=== PATIENT | female | born 1930 | race Caucasian/White ===

== ENCOUNTER → 2017-08-30 13:07 | Outpatient (CLI) | payer MEDICARE ==
[2015-09-04 15:06] VITALS: BMI 20.5
[~2017-08-30 13:07] MED LIST: BONIVA150 MG PO; FERROUS SULFAT140 MG PO; GINKO BILOBA PO; LIPITOR40 MG PO; NORVASC10 MG PO; PLAVIX75 MG PO; PRINIVIL10 MG PO; ZEBETA10 MG PO
== END | disposition home or self-care (01) ==
LOC: D.MAMMO 08-11 15:30
DX: Z12.31 Encounter for screening mammogram for malignant neoplasm of breast (principal)

== ENCOUNTER → 2018-09-21 17:52 | Outpatient (CLI) | payer MEDICARE ==
[2015-09-04 15:06] VITALS: BMI 20.5
== END | disposition home or self-care (01) ==
LOC: D.MAMMO 08:30
DX: R92.8 Other abnormal and inconclusive findings on diagnostic imaging of breast (principal)

== ENCOUNTER → 2018-10-03 09:47 | Outpatient (CLI) | payer MEDICARE ==
[2015-09-04 15:06] VITALS: BMI 20.5
[~2018-10-03 09:47] MED LIST changes: +ALPHA PO; +LANOXIN125 MCG PO; +NORCO 10-325 TA1 TAB PO
[2018-10-28 07:51] VITALS: BMI 23.4
== END | disposition home or self-care (01) ==
LOC: D.US 09-28 11:00
DX: R92.8 Other abnormal and inconclusive findings on diagnostic imaging of breast (principal)

== ENCOUNTER 2018-10-27 05:57 | Day surgery (SDC) | payer MEDICARE ==
[2018-10-26 15:25] LABS: BASOPHILS 0.1 % (0-2); EOSINOPHILS 1.7 % (0-7); HEMATOCRIT 35.5 % (36.0-48.0); HEMOGLOBIN 11.7 g/dL (12-16); IMMATURE GRANULOCYTES 0.2 % (0-5); LYMPHOCYTES 14.9 % (15-50); MCH 29.6 pg (26.0-34.0); MCV 89.9 fL (80.0-100.0); MEAN PLATELET VOLUME 11.6 fL (7.4-10.4); MONOCYTES 10.9 % (2-11); NEUTROPHILS 72.2 % (40-80); RBC 3.95 10x6/uL (4.00-5.40); RDW 13.3 % (11.5-14.5); WBC 9.7 10x3/uL (4.8-10.8)
[2018-10-26 15:41] LABS: PLATELET COUNT 218 10x3/uL (130-400)
[2018-10-26 15:48] LABS: ANION GAP 12.4 mmol/L (8-16); CALCIUM 10.1 mg/dL (8.5-10.1); CARBON DIOXIDE 28.6 mmol/L (21.0-32.0); CREATININE - SERUM 1.5 mg/dL (0.6-1.3)
[2018-10-26 16:02] LABS: APTT 26.5 SECONDS (22.8-39.4); INR 1.12 (0.85-1.17); PROTIME 13.9 SECONDS (11.6-15.0)
[~2018-10-27] VITALS: Ht 152.4 cm; Wt 54.5 kg
--- NOTE | ~2018-10-27 | OP ---
PATIENT NAME: CADE JAIME MEDICAL RECORD: [id number] :32 LOCATION:D.MS [id number] ADMISSION DATE: SURGEON: MEDHAT MCKEON MD DATE OF OPERATION: 10/27/2018 PREOPERATIVE DIAGNOSES: 1. Left breast invasive lobular carcinoma. 2. Hypertension. 3. Hypercholesterolemia. 4. Valvular heart disease. 5. History of chronic anticoagulant use. 6. History of CVA. POSTOPERATIVE DIAGNOSES: 1. Left breast invasive lobular carcinoma. 2. Hypertension. 3. Hypercholesterolemia. 4. Valvular heart disease. 5. History of chronic anticoagulant use. 6. History of CVA. PROCEDURES: 1. Left simple mastectomy. 2. Right axillary sentinel lymph node biopsy. SURGEON: Medhat Mckeon MD REPORT OF PROCEDURE: The patient's chest and axilla were prepped and draped in sterile fashion. Preoperatively, the patient had undergone lymphoscintigraphy which showed no uptake in the left axilla, but there was brisk uptake in the right axilla. The patient had had previous surgery for breast cancer on the left breast, but they were unsure if she had ever undergone lymph node dissection. We marked the area around the nipple areolar complex on the left breast in an ovoid fashion. The patient's breast was firm and protruding out. The skin was puckered in over top of this. We made sure that our incision lines incorporated what appeared to be normal tissue. The skin incision was made using a #10 blade. We used electrocautery to dissect through the subcutaneous tissue. Superior and inferior skin flaps were made encompassing the entire breast tissue. We then excised the breast off of the pectoralis muscle on the inferior and lateral aspect of the pectoralis muscle. This mass was adherent to the muscle. For this reason, we had to excise a small portion of the muscle to actually completely remove the mass. Once the mass was removed, it was marked appropriately and sent off for permanent specimen. Any bleeding that was found was then treated with electrocautery or tied off with 3-0 silk ties. The left axilla was inspected and there was some scar tissue present. I used the Neoprobe to try and find any evidence of any radioactive uptake and there really was none. I even did a digital inspection of the area and found no evidence of any lymph tissue visible. I assumed at this point they probably had actually done a left axillary lymph node dissection at her previous breast cancer surgery. We irrigated out this entire wound with sterile water. A #10 flat J-P drains times 2 were then inserted and placed over the chest cavity. The subcutaneous tissues were reapproximated with multiple interrupted 3-0 Vicryls and the skin was closed with tammy. We then approached the patient's right axilla. Using the Neoprobe, we localized the area of highest reading and a transverse incision was made overlying this. We penetrated through to the OPERATIVE REPORT [id number] CADE JAIME axillary fascia, and once inside, we pulled up axillary tissue which included a large sentinel lymph node. This lymph node was excised completely and the final reading for it was 200. We inspected the area and there was another sentinel lymph node that was nearby the registered approximately 160. This was very small in nature and this was excised completely as well. We inspected once again and did not find any evidence of any radiotracer present. We then irrigated out this wound with normal saline. The subcutaneous tissues and fascia were closed with interrupted 3-0 Vicryls and the skin was closed with running subcutaneous 5-0 Monocryl. COMPLICATIONS: None. CONDITION: Stable. ANESTHESIA: General endotracheal. BLOOD LOSS: 50 mL. TRANSINT:[id number] Voice Confirmation ID: [id number] DOCUMENT ID: [id number] MEDHAT MCKEON MD CC: Bobby CARUSO ROBERT T [id number] DICTATION DATE: 10/27/18 1545 PUBLIC WORKS LABORER: 10/27/181914 [facility] [address] [place] [address]
[~2018-10-27 05:57] MED LIST changes: -NORCO 10-325 TA1 TAB PO
[2018-10-27 06:51] VITALS: BP 134/51
[2018-10-27 17:27] VITALS: BP 126/68
[2018-10-27 17:47] VITALS: BP 126/75
[2018-10-27 20:00] VITALS: BP 115/61
[2018-10-28] VITALS: BP 116/53
[2018-10-28 03:49] LABS: BASOPHILS 0 % (0-2); EOSINOPHILS 0 % (0-7); HEMOGLOBIN 10.7 g/dL (12-16); IMMATURE GRANULOCYTES 0.2 % (0-5); LYMPHOCYTES 6.3 % (15-50); MCH 29.4 pg (26.0-34.0); MCHC 33.4 g/dL (31.0-37.0); MEAN PLATELET VOLUME 11.8 fL (7.4-10.4); MONOCYTES 6.7 % (2-11); NEUTROPHILS 86.8 % (40-80); PLATELET COUNT 211 10x3/uL (130-400); RBC 3.64 10x6/uL (4.00-5.40); RDW 13.6 % (11.5-14.5)
[2018-10-28 03:56] LABS: MCV 87.9 fL (80.0-100.0); WBC 14.9 10x3/uL (4.8-10.8)
[2018-10-28 04:00] VITALS: BP 156/80
[2018-10-28 04:08] LABS: ANION GAP 14.2 mmol/L (8-16); CALCIUM 8.7 mg/dL (8.5-10.1); CARBON DIOXIDE 25.8 mmol/L (21.0-32.0); CREATININE - SERUM 1.4 mg/dL (0.6-1.3)
[2018-10-28 07:51] VITALS: BP 156/80; Ht 152.4 cm; Wt 54.5 kg
[2018-10-28] MEDS ORDERED: NORCO 10-325 TA1 TAB PO (08:21)
[2018-10-28 10:02] VITALS: BP 100/46
== END 2018-10-28 11:45 | disposition home or self-care (01) ==
LOC: D.OPS 05:57 → D.MS 05:57 → D.NM 08:00 → D.PAN 08:00 → D.MS 17:26 → D.OPS 10-28 11:45
PROVIDERS: Surgery
DX: C50.912 Malignant neoplasm of unspecified site of left female breast (principal); I10 Essential (primary) hypertension; E78.00 Pure hypercholesterolemia, unspecified; I38 Endocarditis, valve unspecified; Z86.73 Personal history of transient ischemic attack (TIA), and cerebral infarction without residual deficits; Z79.01 Long term (current) use of anticoagulants; Z01.812 Encounter for preprocedural laboratory examination

== ENCOUNTER 2019-11-23 11:19 | Inpatient (IN) | payer MEDICARE ==
[2019-11-23] VITALS (7 sets, daily range): BP systolic 113–175; BP diastolic 58–100; BMI 21.5
[~2019-11-23] VITALS: Ht 152.4 cm; Wt 60.1 kg
[~2019-11-23 11:19] MED LIST changes: +NORCO 10-325 TA1 TAB PO
[2019-11-23 13:22] LABS: BASOPHILS 0.1 % (0-2); EOSINOPHILS 0.1 % (0-7); HEMATOCRIT 38.9 % (36.0-48.0); HEMOGLOBIN 12.7 g/dL (12-16); IMMATURE GRANULOCYTES 0.3 % (0-5); LYMPHOCYTES 4.7 % (15-50); MCH 29.3 pg (26.0-34.0); MCHC 32.6 g/dL (31.0-37.0); MCV 89.6 fL (80.0-100.0); MEAN PLATELET VOLUME 12.1 fL (7.4-10.4); MONOCYTES 11.3 % (2-11); NEUTROPHILS 83.5 % (40-80); RBC 4.34 10x6/uL (4.00-5.40); RDW 13.4 % (11.5-14.5); WBC 14.1 10x3/uL (4.8-10.8)
[2019-11-23 13:54] LABS: PLATELET COUNT 343 10x3/uL (130-400)
[2019-11-23 14:38] LABS: ALBUMIN 3.7 g/dL (3.4-5.0); BILIRUBIN - TOTAL 0.74 mg/dL (0.2-1.3); CALCIUM 10.7 mg/dL (8.5-10.1); CARBON DIOXIDE 39.5 mmol/L (21.0-32.0); CREATININE - SERUM 2.6 mg/dL (0.6-1.3); PROTEIN - SERUM 8.1 g/dL (6.4-8.2)
[2019-11-23 14:42] LABS: POTASSIUM - SERUM 2.5 mmol/L (3.5-5.1)
[2019-11-23 14:43] LABS: TROPONIN-I 0.165 ng/mL (0.000-0.060)
--- NOTE | 2019-11-23 14:44 | NUR ---
ERP INFORMED OF CRITICAL LAB.
[2019-11-23 16:23] LABS: APPEARANCE CLEAR (CLEAR); BILIRUBIN NEGATIVE (NEGATIVE); COLOR YELLOW (YELLOW); GLUCOSE NEGATIVE (NEGATIVE); KETONE SMALL mg/dL (NEGATIVE); NITRITE NEGATIVE (NEGATIVE); PROTEIN 1+ mg/dL (NEGATIVE); SPECIFIC GRAVITY 1.005 (1.005-1.020); UROBILINOGEN NORMAL (NORMAL)
[2019-11-23 16:25] LABS: BACTERIA FEW /hpf (NEGATIVE); EPITHELIAL CELLS 0-5 /hpf (0-5); RED CELLS - URINE 0-5 /hpf (0-5); WHITE CELLS - URINE 0-5 /hpf (NEGATIVE)
[2019-11-23 16:26] LABS: HYALINE CAST 0-5 /lpf (NONE SEEN)
--- NOTE | 2019-11-23 17:31 | MORECARE ---
CASE MANAGEMENT DISCHARGE SUMMARY PATIENT: CADE JAIME UNIT: [id number] ADM DATE: 11/23/19 AGE: 89 : 31 SEX: F ROOM/BED: D.2223 AUTHOR: RAFFAELE CORLEY PHYSICIAN: REFERRING PHYSICIAN: KALYN TAMEZ MD DATE OF SERVICE: 11/23/19 Discharge Plan Patient Name: CADE JAIME Facility: [facility]:[place] : 1930 Planned Disposition: Home Anticipated Discharge Date: 11/26/19 Discharge Date: Expected LOS: 3 Initial Reviewer: [email or web address] Initial Review Date: 11/23/2019 Generated: 11/23/19 6:30 pm Patient Name: CADE JAIME Page [id number] at 1731 All edits/amendments must be made on the electronic document DICTATION DATE: 11/23/191730 PLASTER PATTERN CASTER: SINDY 11/23/191730 RPT#: [id number] DC DATE: STATUS: ADM IN [facility] [address] [place] [address] END OF REPORT
--- NOTE | 2019-11-23 17:33 | NUR ---
PATIENT ADMITTED TO ROOM 2223. ADMISSION COMPLETE. VERY WEAK. KHADRA ALARM ON BED. BED LOW. CALL FERREIRA AND PERSONAL ITEMS IN REACH. AT BEDSIDE. WILL CONTINUE TO MONITOR.
--- NOTE | 2019-11-23 17:39 | MORECARE ---
CASE MANAGEMENT DISCHARGE SUMMARY PATIENT: CADE JAIME UNIT: [id number] ADM DATE: 11/23/19 AGE: 89 : 31 SEX: F ROOM/BED: D.2223 AUTHOR: BARNEY,DOC PHYSICIAN: REFERRING PHYSICIAN: KALYN TAMEZ MD DATE OF SERVICE: 11/23/19 Discharge Plan Patient Name: CADE JAIME Facility: [facility]:[place] : 1930 Planned Disposition: Home Anticipated Discharge Date: 11/26/19 Discharge Date: Expected LOS: 3 Initial Reviewer: [email or web address] Initial Review Date: 11/23/2019 Generated: 11/23/19 6:39 pm DCP- Discharge Planning Updated by [email or web address]: Jess Weiner on 11/23/19 4:[address] DC PLAN: Return home with her who is her primary cg. ANTICIPATED DC NEEDS: Denied known dc needs. CM met with patient and her , Everette Jaime, to complete initial dc planning assessment. CM educated them on the CM role and verbal consent given by patient to complete assessment. CM verified patient's address, phone number, and emergency contact phone numbers. Per 's reports the patient lives at home with him. He reports she has Alzheimer's and for the past week it has gotten worse where she asks him who he is. At discharge he plans to take the patient home and he feels this is a safe discharge. CM discussed availability of home health, rehab services, and medical equipment. He stated he did not feel these services are necessary at this time. Transportation provider at discharge will be her . CM will continue to follow and will assist as needed with dc plans/needs. Jess Weiner RN, [facility] DCPIA - Discharge Planning Initial Assessment Updated by [email or web address]: Jess Weiner on 11/23/19 5:33 pm * Is the patient Alert and Oriented? Yes * How many steps to enter\exit or inside your home? None * PCP Trinidad Thao APRN * Pharmacy [facility] [address] * Preadmission Environment Home with Family * ADLs Partial Dependent * Partial ADLs (Assistance needed) Medication Management * Equipment Rolling Walker Wheelchair * List name and contact numbers for known caregivers / representatives who currently or will assist patient after discharge: Everette Jaime - spouse - [phone] * Verbal permission to speak to the caregivers and representatives has been obtained from the patient. Yes * Community resources currently utilized None * Additional services required to return to the preadmission environment? No * Can the patient safely return to the preadmission environment? Yes * Has this patient been hospitalized within the prior 30 days at any hospital? No Last DP export: 11/23/19 4:31 Patient Name: CADE JAIME Page 80888 at 1739 All edits/amendments must be made on the electronic document DICTATION DATE: 11/23/191738 WIRE SETTER: SINDY 11/23/191738 RPT#: [id number] DC DATE: STATUS: ADM IN [facility] [address] [place] [address] END OF REPORT
--- NOTE | 2019-11-23 17:47 | NUR ---
ADDITION TO ADMISSION NOTE. STATES PATIENT HAS BEEN INCREASINGLY CONFUSED. ALSO STATES PATIENT HAS LOST 10 POUNDS IN 10 DAYS.
--- NOTE | 2019-11-23 19:00 | NUR ---
BEDSIDE REPORT RECEIVED AND CARE OF PT ASSUMED. PT LYING IN LOW YOUSIF'S POSITION. IV TO RIGHT AC PATENT WITH NS INFUSING AT 100, AND K+ RIDER 10 MEQ INFUSING AT 50 ML/HR. O2 IN USE VIA NC AT 2L. WILL MONITOR FOR NEEDS.
--- NOTE | 2019-11-23 20:30 | NUR ---
HS MEDICATIONS GIVEN. ASSISTED PT UP TO USE RESTROOM TO VOID. CHANGED GOWN AND BEDPAD.
--- NOTE | 2019-11-23 21:20 | NUR ---
PT RESTING QUIETLY IN LOW YOUSIF'S POSITION WITH EYES CLOSED. O2 IN USE VIA NC AT 2L AND SPO2 94% AT THIS ASSESSMENT.
--- NOTE | 2019-11-23 22:43 | NUR ---
PT RESTLESS AND CLIMBING OUT OF BED, WITH FACIAL GRIMACING. GAVE MORPHINE 1 MG IVP PER PRN ORDER FOR PAIN. WILL MONITOR FOR EFFECTIVENESS.
[2019-11-24 00:30] VITALS: BP 172/60
[2019-11-24 02:31] LABS: BASOPHILS 0 % (0-2); EOSINOPHILS 0.1 % (0-7); HEMATOCRIT 32.2 % (36.0-48.0); HEMOGLOBIN 10.2 g/dL (12-16); IMMATURE GRANULOCYTES 0.4 % (0-5); LYMPHOCYTES 4.6 % (15-50); MCH 28.7 pg (26.0-34.0); MCHC 31.7 g/dL (31.0-37.0); MCV 90.7 fL (80.0-100.0); MONOCYTES 10.9 % (2-11); PLATELET COUNT 255 10x3/uL (130-400); RBC 3.55 10x6/uL (4.00-5.40); RDW 13.5 % (11.5-14.5); WBC 16.9 10x3/uL (4.8-10.8)
[2019-11-24 02:56] LABS: ALBUMIN 2.8 g/dL (3.4-5.0); BILIRUBIN - TOTAL 0.55 mg/dL (0.2-1.3); CALCIUM 9.1 mg/dL (8.5-10.1); CHOL - HDL RATIO 2.3 ratio (2.3-4.1); CREATININE - SERUM 2.6 mg/dL (0.6-1.3); LDL-HDL RATIO 0.9 ratio (1.5-3.5); MAGNESIUM - SERUM 2.7 mg/dL (1.8-2.4); PHOSPHOROUS 4.6 mg/dL (2.5-4.9); PROTEIN - SERUM 6.5 g/dL (6.4-8.2)
[2019-11-24 03:03] LABS: ANION GAP 6.5 mmol/L (8-16); POTASSIUM - SERUM 3.1 mmol/L (3.5-5.1); TROPONIN-I 0.184 ng/mL (0.000-0.060)
[2019-11-24 03:05] LABS: CARBON DIOXIDE 41.6 mmol/L (21.0-32.0)
[2019-11-24 05:00] VITALS: BP 168/67
--- NOTE | 2019-11-24 08:00 | NUR ---
ALERT AND ORIENTED TO SELF AND SURROUNDINGS. PT HAS DECREASED VISUAL ACUITY AND WEARS SCD'S. HR IRREGULAR AND DENIES ANY CHEST PAIN.LUNGS CTA. BOWEL SOUNDS NOTED WITHH OUT EDEMA TO BLE. IV TO RT. A/C AND LT. HAND WITH NO S/S OF INFECTION/INFILTRATION. ENCOURAGED TO USE CALL LIGHT FIR ASSSIT WITH FALL PRECAUTIONS IN PLACE.
[2019-11-24 08:51] VITALS: BP 141/65
[2019-11-24 09:33] VITALS: BMI 21.4
[2019-11-24 12:22] VITALS: BP 135/55
--- NOTE | 2019-11-24 13:00 | NUR ---
TELEMETRY APPLIED WITH SINUS RHYTHM WITH PVC'S 81.DENEIS ANY CHEST PAIN OR DISCOMFORT.
--- NOTE | 2019-11-24 14:46 | MORECARE ---
CASE MANAGEMENT DISCHARGE SUMMARY PATIENT: CADE JAIME UNIT: [id number] ADM DATE: 11/23/19 AGE: 89 : 31 SEX: F ROOM/BED: D.2223 AUTHOR: BARNEYDOC PHYSICIAN: REFERRING PHYSICIAN: KALYN TAMEZ MD DATE OF SERVICE: 11/24/19 Discharge Plan Patient Name: CADE JAIME Facility: [facility]:[place] : 1930 Planned Disposition: Home Anticipated Discharge Date: 11/26/19 Discharge Date: Expected LOS: 3 Initial Reviewer: [email or web address] Initial Review Date: 11/23/2019 Generated: 11/24/19 3:46 pm Comments DCP- Discharge Planning Updated by [email or web address]: Sunitha Gao on 11/24/19 1:[address] Patient Name: CADE JAIME Admission Status: ER Accout number: [id number] Admission Date: 11-23-2019 : 1930 Admission Diagnosis: Attending: KALYN TAMEZ Current LOS: 1 Anticipated DC Date: 11-26-2019 Planned Disposition: Home Primary Insurance: [employer] CHOICE PPO MCR ADVANT Discharge Planning Comments: [facility] ADMIT CALLED AND NGUYEN IS CALLING [facility] AND WORKING ON TRANSFER. EASY ADMIT PHONE NUMBER IS [phone]. Dental Assistant: Sunitha Gao DCP- Discharge Planning Updated by [email or web address]: Jesswinnie Weiner on 11/23/19 4:[address] DC PLAN: Return home with her who is her primary cg. ANTICIPATED DC NEEDS: Denied known dc needs. CM met with patient and her , Everette Jaime, to complete initial dc planning assessment. CM educated them on the CM role and verbal consent given by patient to complete assessment. CM verified patient's address, phone number, and emergency contact phone numbers. Per 's reports the patient lives at home with him. He reports she has Alzheimer's and for the past week it has gotten worse where she asks him who he is. At discharge he plans to take the patient home and he feels this is a safe discharge. CM discussed availability of home health, rehab services, and medical equipment. He stated he did not feel these services are necessary at this time. Transportation provider at discharge will be her . CM will continue to follow and will assist as needed with dc plans/needs. Jess Weiner RN, [facility] DCPIA - Discharge Planning Initial Assessment Updated by [email or web address]: Jess Weiner on 11/23/19 5:33 pm * Is the patient Alert and Oriented? Yes * How many steps to enter\exit or inside your home? None * PCP Trinidad Malik - PROFESSIONAL SYSTEM ADMINISTRATOR * Pharmacy [facility] [address] * Preadmission Environment Home with Family * ADLs Partial Dependent * Partial ADLs (Assistance needed) Medication Management * Equipment Rolling Walker Wheelchair * List name and contact numbers for known caregivers / representatives who currently or will assist patient after discharge: Everette Jaime - spouse - [phone] * Verbal permission to speak to the caregivers and representatives has been obtained from the patient. Yes * Community resources currently utilized None * Additional services required to return to the preadmission environment? No * Can the patient safely return to the preadmission environment? Yes * Has this patient been hospitalized within the prior 30 days at any hospital? No Last DP export: 11/23/19 4:39 Patient Name: CADE JAIME Page 02779 at 1446 All edits/amendments must be made on the electronic document DICTATION DATE: 11/24/191444 VISUAL SUPERVISOR: SINDY 11/24/191444 RPT#: [id number] DC DATE: STATUS: ADM IN [facility] [address] [place] [address] END OF REPORT
[2019-11-24 17:02] VITALS: BP 144/64
--- NOTE | 2019-11-24 19:15 | NUR ---
PATIENT ALERT WHEN ENTERING THE ROOM. CONFUSED TO TIME, PLACE, AND SITUATION. PATIENT HAS LEFT HAND IV THAT IS INFUSING NS @ 100 AND A RIGHT AC IV THAT IS CURRENTLY SALINE LOCKED. PATIENT DENIES PAIN AT THIS TIME. CURRENTLY ON ROOM AIR WITH STABLE VITAL SIGNS. SCD'S ON BILATERAL. CALL LIGHT IN REACH. PROOVIDED WATER AT REQUEST. DENIES FURTHER NEEDS. KHADRA ALARM ON WELL BED ALARM. BLUE SOCKS ON WELL FOR FALL PRECUATIONS. CPOC.
[2019-11-24 21:00] VITALS: BP 145/61
[2019-11-25] VITALS (18 sets, daily range): BP systolic 104–146; BP diastolic 44–79; Ht 152.4 cm; Wt 60.1 kg
--- NOTE | 2019-11-25 02:44 | NUR ---
PATIENT GRIMACING AND HOLDING STOMACH. PROVIDED PAIN MEDICINE. TOLERATED WELL.
[2019-11-25 05:07] LABS: HEMATOCRIT 36.7 % (36.0-48.0); HEMOGLOBIN 11.4 g/dL (12-16); MCH 28.6 pg (26.0-34.0); MCHC 31.1 g/dL (31.0-37.0); MEAN PLATELET VOLUME 12.5 fL (7.4-10.4); PLATELET COUNT 312 10x3/uL (130-400); RBC 3.99 10x6/uL (4.00-5.40); RDW 13.4 % (11.5-14.5); WBC 25.6 10x3/uL (4.8-10.8)
--- NOTE | 2019-11-25 05:07 | NUR ---
MEASUREMENT AND SENSING TECHNICIAN CALLED THIS NURSE INTO ROOM STATING PT O2 SATURATION WAS LOW. PATIENT HAD TAKEN OXYGEN OFF. RESPIRATORY IN ROOM TO HELP ASSIST. PATIENT CURRENTLY STABLE WITH NON REBREATHER MASK ON. REMAINS CONFUSED TO TIME, PLACE, AND SITUATION. CONTINUOUS MONITORING SET UP.
[2019-11-25 05:39] LABS: ALBUMIN 3.1 g/dL (3.4-5.0); ANION GAP 19.7 mmol/L (8-16); BILIRUBIN - TOTAL 0.84 mg/dL (0.2-1.3); CALCIUM 8.9 mg/dL (8.5-10.1); CARBON DIOXIDE 28.1 mmol/L (21.0-32.0); POTASSIUM - SERUM 2.8 mmol/L (3.5-5.1); PROTEIN - SERUM 7.5 g/dL (6.4-8.2)
--- NOTE | 2019-11-25 06:17 | NUR ---
AT BEDSIDE. EXPLAINED MORNING EVENTS. ASKING ABOUT TRANSFER. HE IS VERY UPSET. HE HAS QUESTIONS FOR THE DOCTOR AND WANTS MORE INFORMATION.
[2019-11-25 06:27] LABS: LYMPHOCYTES 6 % (15-50); MONOCYTES 7 % (2-11); NEUTROPHILS 86 % (40-80); PLATELET ESTIMATE NORMAL
--- NOTE | 2019-11-25 08:00 | NUR ---
PATIENT IN BED WITH IV INTACT. NO COMPLAINTS OR SIGNS OF DISTRESS. IV INTACT. TELE ON. SR. SCDS ON. FAMILY AT BEDSIDE. CALL LIGHT WITHIN REACH.
--- NOTE | 2019-11-25 09:30 | NUR ---
RAPID RESPONSE CALLED. PATIENT SATS DOWN TO 78-83 ON 10L HFC. PLACED ON NONREBREATHER AND STILL LOW. PATIENT VOMITTED X 2 AT THIS TIME. COLTEN ICU NURSE TO ROOM. IV INTACT. NEW ORDERS CARRIED OUT.
--- NOTE | 2019-11-25 10:00 | NUR ---
PATIENT TRANSFERRED TO CVICU. AT SIDE.
[2019-11-25 10:44] LABS: CKMB 2.4 U/L (0.0-3.6); CREATINE KINASE 79 UL (21-215); MAGNESIUM - SERUM 2.9 mg/dL (1.8-2.4)
[2019-11-25 10:45] LABS: TROPONIN-I 0.088 ng/mL (0.000-0.060)
--- NOTE | 2019-11-25 11:02 | NUR ---
REC'D TO CVICU. ALL MONITORING EQUIPMENT ATTACHED AND ALARMS SET. RT AT BS. 100% NRB, SPO2 98%. AT BS. ORIENTED TO DEPT. PT SPEAKS NO JAPANESE. TRANSLATES. DR ROBLEDO HERE. DR HUBBARD PAGED. AWAITING CALL BACK.
--- NOTE | 2019-11-25 14:55 | NUR ---
PT RESTING QUIETLY, VSS.
--- NOTE | 2019-11-25 15:46 | NUR ---
SPO2 100% ON 15L NRB. PLACED 6LNC. SPO2 90%. RT NOTIFIED OF CHANGE.
--- NOTE | 2019-11-25 17:03 | NUR ---
ASSISTED PT WITH BED MANE. PT VOIDS 400CC. PT TAKING ICE CHIPS W/O NAUSEA. PLAVIX GIVEN AFTER MOUTH CARE AND SWALLOW PRECAUTIONS.
[2019-11-25 17:43] LABS: CKMB 2.1 U/L (0.0-3.6); CREATINE KINASE 70 UL (21-215)
[2019-11-25 17:45] LABS: TROPONIN-I 0.068 ng/mL (0.000-0.060)
--- NOTE | 2019-11-25 19:00 | NUR ---
REPORT RECEIVED. RECEIVED PATIENT IN BED AWAKE AND ALERT. ORIENTED TO SELF ONLY. SPEECH CLEAR. RESP EVEN AND UNLABORED WITH NO COUGH OBSERVED. MONITORS CONNECTED TO PATIENT WITH ALARMS SET. VSS. ASSESSMENT COMPLETED PER FLOW SHEET WITH NO ACUTE DISTRESS OBSERVED. REMAINS ON 02@ 12L/HIGH FLOW NC.
--- NOTE | 2019-11-25 21:00 | NUR ---
AWAKE AND ALERT. VSS. REQUESTING DRINK OF WATER. GIVEN. AMY WELL. TURNED AND REPOSITIONED FOR COMFORT.
--- NOTE | 2019-11-25 22:00 | NUR ---
SERUM GLUCOSE 402. 20 UNITS REGULAR INSULIN ADMIN RLQ SPOKE WITH DR. TAMEZ NEW ORDERS RECIEVED
--- NOTE | 2019-11-25 23:00 | NUR ---
REASSESSMENT COMPLETED PER FLOW SHEET WITH NO ACUTE DISTRESS OBSERVED. VSS
[2019-11-25 23:34] LABS: CKMB 2.1 U/L (0.0-3.6); CREATINE KINASE 65 UL (21-215)
[2019-11-26] VITALS (61 sets, daily range): BP systolic 86–141; BP diastolic 36–100
--- NOTE | 2019-11-26 01:00 | NUR ---
ASSSISTED WITH BEDPAN. VOIDED SMALL AMOUNT OF DARK CULLEN URINE. SPECIMEN COLLECTED. AMY WELL. VSS
--- NOTE | 2019-11-26 01:53 | NUR ---
RETCHING/COUGHING HEARD FROM PATIENT'S ROOM. ENTERED ROOM. PATIENT HAD VOMITTED LARGE AMOUNT OF GREEN/CARIAS FLUID. O2 SAT DROPPING LOW 68% ON 02 @12 L/MIN VIA HIGH FLOW NC. INCREASED 02 TO 15 L/MIN WITH NO CHANGE IN SATS. RESP LABORED/TACHY 30-40/MIN. AUDIBLE CRACKLES BU AND LL. RT AT BEDSIDE. SUCTIONED PATIENT WITH LARGE AMOUNT OF GREEN/CARIAS LIQUID REMOVED FROM PATIENTS AIRWAY. 0225 DR. HUBBARD PAGED 0230 CALL TO . NO ANSWER3 [address] HUBBARD. UPDATED ON PATIENT'S CONDITION, NEW ORDERS RECEIVED. [address] HUBBARD , INFORMED OF ABG RESULTS AND UPDATED ON PATIENTS CONDITION. NEW ORDERS RECEIVED FOR INTUBATION. BOOKKEEPER NOTIFIED TO PAGE ANESTHESIA FOR INTUBATION 0250 2ND CALL TO PATIENTS WITH NO ANSWER. 0330 BRODY MICHAEL EQUITY RESEARCH ASSOCIATE HERE FOR INTUBATION 0345 PT INTUBATED/ VENTILATED AT THIS TIME. VSS 0400 NGT TO LEFT NARE CONNECTED TO LIT SUCTION DRAINING LARGE AMOUNT OF DARK GREEN/CARIAS LIQUID INTO COLLECTION CHAMBER. 0415 PALACIOS CATHETER 16 FR INSERTED UNDER STERILE TECHNIQUE WITH SMALL AMOUNT OF CONCENTRATED CULLEN URINE TO COLLECTION BAG.
[2019-11-26 04:54] LABS: APPEARANCE CLEAR (CLEAR); BACTERIA NONE SEEN /hpf (NEGATIVE); BILIRUBIN NEGATIVE (NEGATIVE); COLOR YELLOW (YELLOW); GLUCOSE NEGATIVE (NEGATIVE); KETONE SMALL mg/dL (NEGATIVE); NITRITE NEGATIVE (NEGATIVE); PROTEIN NEGATIVE (NEGATIVE); UROBILINOGEN NORMAL (NORMAL); WHITE CELLS - URINE RARE /hpf (NEGATIVE)
--- NOTE | 2019-11-26 05:00 | NUR ---
SEDATED/INTUBATED. ETT INTACT SECURE/PATENT CONNECTED TO MECHANICAL VENT AT ORDERED SETTINGS. VSS AT PRESENT.
--- NOTE | 2019-11-26 05:41 | NUR ---
3RD ATTEMPT TO CONTACT PATIENTS WITH NO ANSWER
--- NOTE | 2019-11-26 05:46 | NUR ---
SPOKE WITH PATIENT'S HIEU, UPDATED ON PATIENTS CONDITION.
--- NOTE | 2019-11-26 07:00 | NUR ---
DR. STEVIE BRIGGS. INTO SEE PATIENT.
--- NOTE | 2019-11-26 07:06 | NUR ---
SPOKE WITH DR. TAMEZ, UPDATED ON PATIENT CONDITION.
--- NOTE | 2019-11-26 07:54 | NUR ---
DR HUBBARD HERE THIS AM. 50% DEXTROSE ORDERED FOR GLUCOSE OF 41.
--- NOTE | 2019-11-26 07:59 | NUR ---
BS 148 AT PRESENT TIME.
[2019-11-26 08:30] LABS: BASOPHILS 0.1 % (0-2); EOSINOPHILS 0.1 % (0-7); HEMATOCRIT 32.7 % (36.0-48.0); HEMOGLOBIN 10.2 g/dL (12-16); IMMATURE GRANULOCYTES 0.2 % (0-5); LYMPHOCYTES 2.2 % (15-50); MCH 28.7 pg (26.0-34.0); MCHC 31.2 g/dL (31.0-37.0); MCV 92.1 fL (80.0-100.0); MEAN PLATELET VOLUME 12.4 fL (7.4-10.4); NEUTROPHILS 91.4 % (40-80); RBC 3.55 10x6/uL (4.00-5.40); RDW 13.7 % (11.5-14.5)
[2019-11-26 08:34] LABS: PLATELET COUNT 242 10x3/uL (130-400); WBC 13.4 10x3/uL (4.8-10.8)
[2019-11-26 08:44] LABS: BILIRUBIN - TOTAL 0.62 mg/dL (0.2-1.3); CALCIUM 7.4 mg/dL (8.5-10.1); CARBON DIOXIDE 23.2 mmol/L (21.0-32.0); CREATININE - SERUM 2.5 mg/dL (0.6-1.3)
[2019-11-26 08:45] LABS: ALBUMIN 2.3 g/dL (3.4-5.0); ANION GAP 18.1 mmol/L (8-16); POTASSIUM - SERUM 3.3 mmol/L (3.5-5.1); PROTEIN - SERUM 5.4 g/dL (6.4-8.2)
--- NOTE | 2019-11-26 09:10 | NUR ---
PTS HERE. DISCUSSED CODE STATUS. STATES " DO NOT WANT SHOCK OR CHEST COMPRESSIONS. WANY VENTILATOR TAKEN OFF IF NOT BETTER AFTER 3 TO 4 DAYS." DISCUSSED CVL PLACEMENT. STATES" OK TO HAVE CVL PLACED.
--- NOTE | 2019-11-26 12:57 | NUR ---
L HAND PIV LEAKING. IV SITED TO R ALDOEP 20GA X 1 STICK.
--- NOTE | 2019-11-26 16:51 | NUR ---
RT JUG CVL PLACED BY DR SNOW IN CVICU. CXR DONE ORDERED WITH DR SNOW AT BS. OK TO USE GIVEN BY DR SNOW AT BS.
--- NOTE | 2019-11-26 19:00 | NUR ---
BEDSIDE REPORT AND SHIFT ASSESSMENT COMPLETE, SEE FLOWSHEET. PT VENTILATED, SEDATED, OPENS EYES. R JUGULAR CVL PATENT, DRESSING CDI, SEE IV FLOWSHEET. L NARE NGT TO LIS, DARK GREEN OUTPUT NOTED. PALACIOS WITH CULLEN UOP. VSS, NO SIGNS OF ACUTE DISTRESS NOTED. WILL CONTINUE TO MONITOR.
--- NOTE | 2019-11-26 21:00 | NUR ---
MEDS GIVEN PER JAN. PT SEDATED, OPENS EYES SPONTANEOUSLY. WILL CONTINUE TO MONITOR.
--- NOTE | 2019-11-26 23:00 | NUR ---
REASSESSMENT COMPLETE, SEE FLOWSHEET. PT SEDATED, OPENS EYES. VSS, NO SIGNS OF ACUTE DISTRESS NOTED. WILL CPOC.
[2019-11-27] VITALS (91 sets, daily range): BP systolic 92–120; BP diastolic 38–52
--- NOTE | 2019-11-27 | NUR ---
PT AGITATED, DIPRIVAN TITRATED PER ORDERS.
--- NOTE | 2019-11-27 01:00 | NUR ---
PT SEDATED, RESTING QUIETLY IN BED. VSS, NO SIGNS OF ACUTE DISTRESS NOTED. WILL CONTINUE PLAN OF CARE.
--- NOTE | 2019-11-27 03:00 | NUR ---
REASSESSMENT COMPLETE, SEE FLOWSHEET.
--- NOTE | 2019-11-27 05:00 | NUR ---
CHG BATH, LINEN CHANGE, AND PALACIOS CARE COMPLETE.
[2019-11-27 05:10] LABS: BASOPHILS 0.1 % (0-2); EOSINOPHILS 2.7 % (0-7); IMMATURE GRANULOCYTES 0.3 % (0-5); LYMPHOCYTES 3.1 % (15-50); MCH 28.6 pg (26.0-34.0); MCHC 31.5 g/dL (31.0-37.0); MCV 90.7 fL (80.0-100.0); MEAN PLATELET VOLUME 12.3 fL (7.4-10.4); NEUTROPHILS 86.8 % (40-80); PLATELET COUNT 207 10x3/uL (130-400)
[2019-11-27 05:12] LABS: HEMATOCRIT 25.4 % (36.0-48.0)
[2019-11-27 05:24] LABS: ANION GAP 11.9 mmol/L (8-16); BILIRUBIN - TOTAL 0.45 mg/dL (0.2-1.3); CARBON DIOXIDE 27.5 mmol/L (21.0-32.0); CREATININE - SERUM 2.6 mg/dL (0.6-1.3); POTASSIUM - SERUM 3.4 mmol/L (3.5-5.1); PROTEIN - SERUM 4.9 g/dL (6.4-8.2)
[2019-11-27 05:48] LABS: ALBUMIN 1.7 g/dL (3.4-5.0)
[2019-11-27 05:49] LABS: CALCIUM 6.8 mg/dL (8.5-10.1)
--- NOTE | 2019-11-27 07:00 | NUR ---
RECEVIED BEDSIDE REPORT ON PATIENT AND ASSUMED CARE. PATIENT SEDATED ON VENT. VSS. PALACIOS CATH IN PLACE WITH YELLOW CLEAR UOP NOTED. RIGHT IJ CVL IN PLACE WITH D5NS INFUSING AT 75 ML/HR, PROPOFOL AT 20 MCG/KG/MIN, AMIODARONE AT 0.5 MG/MIN, KCL RIDER 20 MEQ AT 100 ML/HR, FENANTYL AT 25 MCG/HR AND LEVOPHED AT 2 MCG/MIN. ETT 7.5, 24 CM AT THE LIP. VENT SETTINGS A/C 20, TV 400, FIO2 - 40% AND PEEP 8. BILATERAL SOFT WRIST RESTRAINTS IN PLACE. BBS - CLEAR AND EQUAL. NG TUBE TO LEFT NARE TO LIWS WITH GREEN/BROWN BILIOUS OUTPUT. PATIENT TURNED AND REPOSITIONED IN BED. HEAD TO TOE ASSESSMENT COMPLETED.
--- NOTE | 2019-11-27 08:58 | NUR ---
PROPOFOL AND TUBING CHANGED. PATIENT TURNED AND REPOSITIONED IN BED. VSS.
--- NOTE | 2019-11-27 09:25 | NUR ---
AT ROOM UPDATED AND QUESTIONS ANSWERED.
--- NOTE | 2019-11-27 10:43 | NUR ---
LAB DRAWN AND SENT TO LAB FOR K AND VANC TROUGH.
--- NOTE | 2019-11-27 10:58 | NUR ---
REASSESSMENT COMPLETED. VSS. PATIENT TURNED AND REPOSITIONED IN BED.
--- NOTE | 2019-11-27 12:02 | NUR ---
DR. TRAORE AT ROOM UPDATED AND EXAMINES PATIENT.
--- NOTE | 2019-11-27 12:46 | NUR ---
Nutrition Follow-up: Intubated 11/26 following aspiration. NGT to LIWS. Diet: NPO Wt: 124.5# Last BM: 11/21 Labs noted: K+ 3.4, Na 146, GFR 18, Glu 154, Ca 6.8, Alb 1.7, Lip 358 Meds noted: D5NS @ 75, Diprivan, Levophed, KCl -If pt remains intubated, may consider nutrition support within 24-48 hrs as medically feasible. -RD following.
--- NOTE | 2019-11-27 13:16 | NUR ---
DR. CONNELL AT ROOM UPDATED AND EXAMINES PATIENT. CVP INTIATED, LEVELED AND ZEROED CVP - 11. PATIENT TURNED AND REPOSTIONED IN BED. LEVOPHED TURNED OFF WITH BP 108/45 (67) WAS AT 1 MCG/MIN.
--- NOTE | 2019-11-27 13:51 | NUR ---
PATIENT DISCHARGE INSTRUCTIONS GIVEN AND QUESTIONS ANSWERED. DISCHARGED TO HOME WITH FAMILY MEMBER. VSS.
--- NOTE | 2019-11-27 13:56 | OP ---
PATIENT NAME: CADE JAIME MEDICAL RECORD: [id number] :[birth year] LOCATION:D.CVI D.CV01 ADMISSION DATE:11/23/19 SURGEON: DON SNOW MD DATE OF OPERATION: 11/26/2019 PREOPERATIVE DIAGNOSES: 1. Ventilatory failure. 2. Aspiration pneumonia. 3. Pancreatitis. POSTOPERATIVE DIAGNOSES: 1. Ventilatory failure. 2. Aspiration pneumonia. 3. Pancreatitis. PROCEDURE: Insertion of right internal jugular triple-lumen central venous catheter. SURGEON: Don Snow MD LADLE LINER: None. BLOOD LOSS: Minimal. ANESTHESIA: Local. The entire procedure was performed in the presence of a female nurse. A consent form had been signed. OPERATIVE COURSE: The patient was seen in her ICU bed. She was positioned in the Trendelenburg position. The right neck was sterilely prepped and draped. A local anesthetic was used to infiltrate the skin and subcutaneous tissues at the base of the right neck. The right internal jugular vein was percutaneously accessed in an antegrade fashion. A guidewire passed easily. A small skin alma rosa was accomplished. A vessel dilator was used to dilate a subcutaneous tract. A 16 cm triple-lumen central venous catheter was inserted to the hub. It was sutured in place times 3. All lumens flushed easily and aspirated dark, nonpulsatile blood. A stat portable chest x-ray is pending. TRANSINT:[id number] Voice Confirmation ID: [id number] DOCUMENT ID: [id number] DON SNOW MD at 1356 CC: KALYN TAMEZ MD [id number] DICTATION DATE: 11/26/191712 SOLE SPLITTER: 11/26/191913 ADM IN [facility] [address] [place] [address]
--- NOTE | 2019-11-27 14:25 | NUR ---
LEVOPHED GTT RESTARTED BP 92/40 (59).
--- NOTE | 2019-11-27 15:00 | NUR ---
REASSESSMENT COMPLETED. PATIENT TURNED AND REPOSITIONED IN BED. VSS. AT ROOM AND UPDATED, QUESTIONS ANSWERED.
--- NOTE | 2019-11-27 16:52 | NUR ---
DR. CONNELL AT ROOM UPDATES AND ANSWERS HUSBANDS QUESTIONS.
--- NOTE | 2019-11-27 16:56 | NUR ---
PATIENT TURNED AND REPOSITONED. VSS.
--- NOTE | 2019-11-27 17:20 | NUR ---
DR. ZAIDI AT ROOM UPATED AND EXAMINES PATIENT.
--- NOTE | 2019-11-27 19:10 | NUR ---
BEDSIDE SHIFT REPORT COMPLETE. PATIENT CARE TAKEN OVER WILL CONTINUE TO MONITOR.
--- NOTE | 2019-11-27 19:15 | NUR ---
SHIFT ASSESSMENT COMPLETE. WILL CONTINUE TO MONITOR. NO DISTRESS NOTED AT THIS TIME.
[2019-11-28] VITALS (52 sets, daily range): BP systolic 98–121; BP diastolic 41–53
[2019-11-28 05:10] LABS: BASOPHILS 0.1 % (0-2); EOSINOPHILS 2.1 % (0-7); HEMATOCRIT 24.5 % (36.0-48.0); HEMOGLOBIN 7.7 g/dL (12-16); IMMATURE GRANULOCYTES 0.7 % (0-5); LYMPHOCYTES 1.8 % (15-50); MCH 28.6 pg (26.0-34.0); MCHC 31.4 g/dL (31.0-37.0); MCV 91.1 fL (80.0-100.0); MEAN PLATELET VOLUME 12.5 fL (7.4-10.4); NEUTROPHILS 88.3 % (40-80); PLATELET COUNT 181 10x3/uL (130-400); RBC 2.69 10x6/uL (4.00-5.40); RDW 14.5 % (11.5-14.5)
[2019-11-28 05:11] LABS: WBC 19.5 10x3/uL (4.8-10.8)
[2019-11-28 05:27] LABS: ALBUMIN 1.5 g/dL (3.4-5.0); ANION GAP 11.7 mmol/L (8-16); BILIRUBIN - TOTAL 0.47 mg/dL (0.2-1.3); CREATININE - SERUM 2.2 mg/dL (0.6-1.3); POTASSIUM - SERUM 3.7 mmol/L (3.5-5.1); VANCOMYCIN - RANDOM 23.2 ug/mL (10.0-20.0)
[2019-11-28 05:46] LABS: PHOSPHOROUS 1.3 mg/dL (2.5-4.9)
--- NOTE | 2019-11-28 07:07 | NUR ---
SHIFT REPORT RECEIVED. ON VENT A/C, R20, TV 400, FIO2 40%, PEEP 8. ETT SIZE 7.5 24 AT THE LIP. SEDATED OPENS EYES AND MOVES EXTREMITIES. WRIST RESTRAINTS IN PLACE. NGT TO LEFT NARE TO LIWS. RIJ CVL WITH PROPOFOL, D5W, AMIODARONE, FENTANYL AND LEVOPHED. SEE IV FLOWSHEET FOR RATES. PALACIOS CATHETER IN PLACE WITH CONCENTRATED CULLEN URINE NOTED. SCD'S IN PLACE ON BILAT LE. BED ALARM ON, SIDE RAILS UP X 2. WILL CONTINUE TO MONITOR.
--- NOTE | 2019-11-28 07:07 | NUR ---
SHIFT REPORT RECEIVED. ON VENT A/C, R 20, TV 400, FIO2 40%, PEEP 8. ETT SIZE 8 24 AT LIP. SEDATED OPENS EYES AND MOVES EXTREMITIES. WRIST RESTRAINTS IN PLACE. NGT TO LEFT NARE TO LIWS. RIJ CVL WITH PROPOFOL, D5W, AMIODARONE, FENTANYL, AND LEVOPHED. SEE IV FLOWSHEET FOR RATES. PALACIOS CATHETER IN PLACE WITH CONCENTRATED URINE NOTED. SCD'S IN PLACE. BED ALARM ON. SIDE RAILS UP X 2. WILL CONTINUE TO MONITOR.
--- NOTE | 2019-11-28 09:45 | NUR ---
LEVOPHED TURNED OFF AT THIS TIME.
--- NOTE | 2019-11-28 10:00 | NUR ---
SPOUSE AT BEDSIDE. REQUESTED THAT NO VISITORS BE ALLOWED TO SEE PT.
--- NOTE | 2019-11-28 14:11 | NUR ---
CHG BATH GIVEN. COMPLETE LINEN CHANGE PROVIDED. PULLED UP AND REPOSITIONED FOR COMFORT. TOLERATED WELL. WILL CONTINUE TO MONITOR.
--- NOTE | 2019-11-28 17:40 | NUR ---
DR. ZAIDI AT BEDSIDE. SPOKE WITH SPOUSE. SPOUSE EXPRESS THAT HE WANTS TO TERMINALLY EXTUBATE PT TOMORROW. WILL BE BY AT 12-2PM VISITATION TIME.
--- NOTE | 2019-11-28 19:00 | NUR ---
Patient assessment complete at this time, no changes noted from nurse report, vital signs stable, patient remains sedated on the ventilator. Will monitor for changes in patient condition.
--- NOTE | 2019-11-28 21:00 | NUR ---
NO CHANGES IN PATIENT'S COND. VSS, WILL MONITOR FOR CHANGES
--- NOTE | 2019-11-28 23:00 | NUR ---
PT REASSESSMENT COMPLETED AT THIS TIME, WHILE ASSESSING NGT, SUCTION WAS NOTED TO NOT BE CYCLING OFF AND ON, SUCTION MODULE WAS CHANGES AND PT HAD 1500 ML OF DARK GREEN LIQUID REMOVED, VSS, WILL MONITOR FOR CHANGES
[2019-11-29] VITALS (26 sets, daily range): BP systolic 102–129; BP diastolic 37–53
--- NOTE | 2019-11-29 01:00 | NUR ---
PT SEDATED ON THE VENT, NO CHANGES NOTED, VSS, WILL MONITOR FOR CHANGES
--- NOTE | 2019-11-29 03:00 | NUR ---
PT REASSESSMENT COMPLETED AT THIS TIME, NO CHANGES NOTED, VSS, WILL MONITOR FOR CHANGES
--- NOTE | 2019-11-29 05:41 | NUR ---
i7o, AND DAILY WEIGHT DOCUMENTATION COMPLETED AT THIS TIME, NO CHANGES NOTED
[2019-11-29 06:32] LABS: ALBUMIN 1.3 g/dL (3.4-5.0); ANION GAP 12.5 mmol/L (8-16); BILIRUBIN - TOTAL 0.32 mg/dL (0.2-1.3); CALCIUM 7.2 mg/dL (8.5-10.1); CREATININE - SERUM 1.9 mg/dL (0.6-1.3); POTASSIUM - SERUM 3.5 mmol/L (3.5-5.1); PROTEIN - SERUM 4.7 g/dL (6.4-8.2); VANCOMYCIN - RANDOM 17.7 ug/mL (10.0-20.0)
[2019-11-29 06:43] LABS: BASOPHILS 0.1 % (0-2); EOSINOPHILS 3.5 % (0-7); HEMATOCRIT 22.6 % (36.0-48.0); IMMATURE GRANULOCYTES 1.4 % (0-5); LYMPHOCYTES 3.2 % (15-50); MCH 28.6 pg (26.0-34.0); MCHC 31.4 g/dL (31.0-37.0); MCV 91.1 fL (80.0-100.0); MEAN PLATELET VOLUME 12.3 fL (7.4-10.4); MONOCYTES 11.6 % (2-11); NEUTROPHILS 80.2 % (40-80); PLATELET COUNT 156 10x3/uL (130-400); RBC 2.48 10x6/uL (4.00-5.40); RDW 14.8 % (11.5-14.5); WBC 16.7 10x3/uL (4.8-10.8)
[2019-11-29 06:44] LABS: HEMOGLOBIN 7.1 g/dL (12-16)
--- NOTE | 2019-11-29 06:51 | NUR ---
CALLED [facility] TO PAGE THE ON-CALL
--- NOTE | 2019-11-29 07:10 | NUR ---
SHIFT REPORT RECEIVED. ON VENT A/C, RATE 20, TV400, FIO2 40%, PEEP 8. OGT TO LIWS WITH GREEN CONTENT NOTED. RIJ CVL IN PLACE WITH PROPOFOL AT 25MCG/KG/MIN, D5W AT 75ML/HR, AMIODARONE AT 0.5MG/MIN, AND FENTANYL AT 25MCG/HR. PALACIOS CATH IN PLACE WITH CONCENTRATED URINE NOTED. WRIST RESTRAINTS IN PLACE PER ORDER. SCD'S IN PLACE. SIDE RAILS UP X 2. BED LOW POSITION. WILL CONTINUE TO MONITOR.
--- NOTE | 2019-11-29 07:21 | NUR ---
DR. CONNELL NOTIFIED OF LOW CRITICAL H&H 7.1 AND 22.6. NO ACTION TAKEN AT THIS TIME. SPOUSE PLANNING ON TERMINALY EXTUBATING TODAY.
--- NOTE | 2019-11-29 11:00 | NUR ---
RE-ASSESSMENT COMPLETED. PROPOFOL INFUSING AT 20MCG/KG/MIN. OPENS EYES TO VOICE. NO ACUTE CHANGES FROM PREVIOUS ASSESSMENT. WILL CONTINUE TO MONITOR
--- NOTE | 2019-11-29 13:14 | NUR ---
DR. CONNELL AT BEDSIDE. SPOKE WITH SPOUSE. FENTANYL AND PROPOFOL DISCONTINUED PER DR. CONNELL'S ORDER.
--- NOTE | 2019-11-29 14:03 | NUR ---
PT TERMINALLY EXTUBATED PER ORDERS. MORPHINE WAS GIVEN PRIOR TO EXTUBATION. SPOUSE AT BEDSIDE.
--- NOTE | 2019-11-29 14:59 | NUR ---
DR. TRAORE AT BEDSIDE. PT RESTING COMFORTABLY. SPOUSE AT BEDSIDE. WILL CONTINUE TO MONITOR AND TREAT.
--- NOTE | 2019-11-29 16:05 | NUR ---
SPOUSE INQUIRED ABOUT PT GETTING MOVED OUT OF ICU. DR. CONNELL AND DR. TRAORE NOTIFIED. WILL PLACE PT ON HOSPICE CARE.
--- NOTE | 2019-11-29 17:07 | NUR ---
CASE MANAGEMENT AT BEDSIDE SPEAKING TO SPOUSE REGARDING HOSPICE CARE.
--- NOTE | 2019-11-29 17:37 | MORECARE ---
CASE MANAGEMENT DISCHARGE SUMMARY PATIENT: CADE JAIME UNIT: [id number] ADM DATE: 11/23/19 AGE: 89 : 31 SEX: F ROOM/BED: D.01 AUTHOR: BARNEY,DOC PHYSICIAN: REFERRING PHYSICIAN: KALYN TAMEZ MD DATE OF SERVICE: 11/29/19 Discharge Plan Patient Name: CADE JAIME Facility: [facility]:[place] : 1930 Planned Disposition: Home Anticipated Discharge Date: 11/26/19 Discharge Date: Expected LOS: 3 Initial Reviewer: [email or web address] Initial Review Date: 11/23/2019 Generated: 11/29/19 6:36 pm Comments DCP- Discharge Planning Updated by [id number]: Doris Fuchs on 11/29/19 4:[address] 1605 CM RECEIVED A TELEPHONE CALL REGARDING EVAL TO ADMIT TO [facility].- THE PATIENT WAS TERMINAL EXTUBATED THIS AFTERNOON AT 1400. CM TO THE UNIT TO SPEAK WITH THE WHO HAS BEEN AT THE BEDSIDE, HE WANTS HIS TO BE COMFORTABLE. HE SEEMS TO UNDERSTAND THE HOSPICE CONCEPT AND SERVICES. 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 HE IS ALSO CONCERNED THAT HIS DOES NOT RESPOND TO HIS VOICE. HE UNDERSTANDS SHE HAS BEEN MEDICATED. HE IS CONCERNED WHETHER HE IS MAKING THE RIGHT DECISION. HE DOES HOWEVER VOICE HE JUST WANTS HER TO BE COMFORTABLE. HE WAS ALSO CONCERNED ABOUT HER MEDICATIONS. EXTENSIVE DISCUSSION REGARD HOSPICE IN THE HOSPITAL SETTING. 1625 TC TO [facility], [facility] CONTRACTED PROVIDER. TC TO [facility] F/U CALL. REC CB FROM [facility]. BRIEFLY DISCUSSED THE REFERRAL. REFERRAL PACKET PROVIDED. FAXED FACE SHEET, MD ORDER AND H/P TO [phone]. AWAIT RN VISIT. PACING AT BEDSIDE. DCP- Discharge Planning Updated by [email or web address]: Sunitha Gao on 11/24/19 1:[address] Patient Name: CADE JAIME Admission Status: ER Accout number: [id number] Admission Date: 11-23-2019 : 1930 Admission Diagnosis: Attending: KALYN TAMEZ Current LOS: 1 Anticipated DC Date: 11-26-2019 Planned Disposition: Home Primary Insurance: [employer] CHOICE PPO MCR ADVANT Discharge Planning Comments: [facility] CALLED AND [facility]GUY[facility] IS CALLING [facility] AND WORKING ON TRANSFER. [facility] ADMIT PHONE NUMBER IS [phone]. Camera Machinist: Sunitha Gao DCP- Discharge Planning Updated by [id number]: Jess Weiner on 11/23/19 4:[address] DC PLAN: Return home with her who is her primary cg. ANTICIPATED DC NEEDS: Denied known dc needs. CM met with patient and her , Everette Jaime, to complete initial dc planning assessment. CM educated them on the CM role and verbal consent given by patient to complete assessment. CM verified patient's address, phone number, and emergency contact phone numbers. Per 's reports the patient lives at home with him. He reports she has Alzheimer's and for the past week it has gotten worse where she asks him who he is. At discharge he plans to take the patient home and he feels this is a safe discharge. CM discussed availability of home health, rehab services, and medical equipment. He stated he did not feel these services are necessary at this time. Transportation provider at discharge will be her . CM will continue to follow and will assist as needed with dc plans/needs. Jess Weiner RN, [facility] DCPIA - Discharge Planning Initial Assessment Updated by [id number]: Jess Weiner on 11/23/19 5:33 pm * Is the patient Alert and Oriented? Yes * How many steps to enter\exit or inside your home? None * PCP Trinidad Thao APRN * Pharmacy [facility] [address] * Preadmission Environment Home with Family * ADLs Partial Dependent * Partial ADLs (Assistance needed) Medication Management * Equipment Rolling Walker Wheelchair * List name and contact numbers for known caregivers / representatives who currently or will assist patient after discharge: Everette Jaime - spouse - [phone] * Verbal permission to speak to the caregivers and representatives has been obtained from the patient. Yes * Community resources currently utilized None * Additional services required to return to the preadmission environment? No * Can the patient safely return to the preadmission environment? Yes * Has this patient been hospitalized within the prior 30 days at any hospital? No Last DP export: 11/24/19 1:46 Patient Name: PERCY JAIMEA Page [id number] at 1737 All edits/amendments must be made on the electronic document DICTATION DATE: 11/29/191735 NURSING INFORMATICS CLINICAL ANALYST: SINDY 11/29/191735 RPT#: [id number] DC DATE: STATUS: ADM IN [facility] [address] [place] [address] END OF REPORT
--- NOTE | 2019-11-29 18:32 | NUR ---
[facility] NURSE IN UNIT FOR HOSPICE EVAL.
--- NOTE | 2019-11-29 19:10 | NUR ---
Received patient laying in bed with firmware test engineer at bedside, assessment completed per flowsheet. Patient sedated with no verbal response, withdraws weakly from noxious stimuli. Pupils @ 4mm with sluggish response, does not track. S1/S2 noted Sinus Tach on telemetry, rythmic and regular. Breathing is regular on 3L via NC with O2 sat 70%, coarse crackles noted bilateral upper and mid with diminished lower. Abdomen is soft/flat with bowel sounds hypoactive x4, non-tender. Patel secured, concentrated yellow urine noted. All pulses weak palpable with cap refill < 3 sec, generalized edema with weakness noted all. Patient states he does not want to be notified if patient expires tonight, consent given to notify Tori and contact in AM. no further needs and will continue to monitor.
--- NOTE | 2019-11-30 18:42 | MORECARE ---
CASE MANAGEMENT DISCHARGE SUMMARY PATIENT: CADE JAIME UNIT: [id number] ADM DATE: 11/23/19 AGE: 89 : 31 SEX: F ROOM/BED: D.CV01 AUTHOR: BARNEY,DOC PHYSICIAN: REFERRING PHYSICIAN: KALYN TAMEZ MD DATE OF SERVICE: 11/30/19 Discharge Plan Patient Name: CADE JAIME Facility: [facility]:[place] : 1930 Planned Disposition: Home Anticipated Discharge Date: 11/26/19 Discharge Date: 11/29/2019 Expected LOS: 3 Initial Reviewer: [email or web address] Initial Review Date: 11/23/2019 Generated: 11/30/19 7:42 pm Comments DCP- Discharge Planning Updated by [id number]: Doris Fuchs on 11/29/19 4:[address] 1605 CM RECEIVED A TELEPHONE CALL REGARDING EVAL TO ADMIT TO [facility].- THE PATIENT WAS TERMINAL EXTUBATED THIS AFTERNOON AT 1400. CM TO THE UNIT TO SPEAK WITH THE WHO HAS BEEN AT THE BEDSIDE, HE WANTS HIS TO BE COMFORTABLE. HE SEEMS TO UNDERSTAND THE HOSPICE CONCEPT AND SERVICES. 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 HE IS ALSO CONCERNED THAT HIS DOES NOT RESPOND TO HIS VOICE. HE UNDERSTANDS SHE HAS BEEN MEDICATED. HE IS CONCERNED WHETHER HE IS MAKING THE RIGHT DECISION. HE DOES HOWEVER VOICE HE JUST WANTS HER TO BE COMFORTABLE. HE WAS ALSO CONCERNED ABOUT HER MEDICATIONS. EXTENSIVE DISCUSSION REGARD HOSPICE IN THE HOSPITAL SETTING. 1625 TC TO [facility], [facility] CONTRACTED PROVIDER. TC TO [facility] F/U CALL. REC CB FROM [facility]. BRIEFLY DISCUSSED THE REFERRAL. REFERRAL PACKET PROVIDED. FAXED FACE SHEET, MD ORDER AND H/P TO [phone]. AWAIT RN VISIT. PACING AT BEDSIDE. DCP- Discharge Planning Updated by [id number]: Sunitha Gao on 11/24/19 1:[address] Patient Name: CADE JAIME Admission Status: ER Accout number: [id number] Admission Date: 11-23-2019 : 1930 Admission Diagnosis: Attending: KALYN TAMEZ Current LOS: 1 Anticipated DC Date: 11-26-2019 Planned Disposition: Home Primary Insurance: [employer] CHOICE PPO MCR ADVANT Discharge Planning Comments: [facility] CALLED AND NGUY[facility] IS CALLING [facility] AND WORKING ON TRANSFER. [facility] ADMIT PHONE NUMBER IS [phone]. Manufacturing Mechanic: Sunitha Gao DCP- Discharge Planning Updated by [id number]: Jess Husam on 11/23/19 4:[address] DC PLAN: Return home with her who is her primary cg. ANTICIPATED DC NEEDS: Denied known dc needs. CM met with patient and her , Everette Jaime, to complete initial dc planning assessment. CM educated them on the CM role and verbal consent given by patient to complete assessment. CM verified patient's address, phone number, and emergency contact phone numbers. Per 's reports the patient lives at home with him. He reports she has Alzheimer's and for the past week it has gotten worse where she asks him who he is. At discharge he plans to take the patient home and he feels this is a safe discharge. CM discussed availability of home health, rehab services, and medical equipment. He stated he did not feel these services are necessary at this time. Transportation provider at discharge will be her . CM will continue to follow and will assist as needed with dc plans/needs. Jess Weiner RN, [facility] DCPIA - Discharge Planning Initial Assessment Updated by [id number]: Jess Weiner on 11/23/19 5:33 pm * Is the patient Alert and Oriented? Yes * How many steps to enter\exit or inside your home? None * PCP Trinidad Thao APRN * Pharmacy [facility] [address] * Preadmission Environment Home with Family * ADLs Partial Dependent * Partial ADLs (Assistance needed) Medication Management * Equipment Rolling Walker Wheelchair * List name and contact numbers for known caregivers / representatives who currently or will assist patient after discharge: Everette Jaime - spouse - [phone] * Verbal permission to speak to the caregivers and representatives has been obtained from the patient. Yes * Community resources currently utilized None * Additional services required to return to the preadmission environment? No * Can the patient safely return to the preadmission environment? Yes * Has this patient been hospitalized within the prior 30 days at any hospital? No Last DP export: 11/29/19 4:37 pm Patient Name: CADE JAIME Page 43491 at 1842 All edits/amendments must be made on the electronic document DICTATION DATE: 11/30/191841 STAPLE PROCESSING MACHINE OPERATOR: SINDY 11/30/191841 RPT#: [id number] DC DATE:11/29/19 STATUS: DIS IN [facility] [address] [place] [address] END OF REPORT
--- NOTE | 2019-12-04 11:12 | CN ---
PATIENT NAME:CADE GUAJARDO MEDICAL RECORD: [id number] : [birth year] LOCATION:[facility].CV01 ADMIT DATE: 11/23/19 ACCOUNT: [id number] CONSULTING PHYSICIAN: GARLAND ROBLEDO MD REFERRING PHYSICIAN: KALYN TAMEZ MD DATE OF CONSULTATION: 11/25/2019 CARDIOLOGY CONSULTATION ADMITTING DIAGNOSES: 1. Paroxysmal atrial fibrillation. 2. Coronary artery disease. 3. Previous percutaneous transluminal coronary angioplasty stent. 4. Valvular heart disease. 5. Hypertension. 6. Hyperlipidemia. 7. Pancreatitis. HISTORY OF PRESENT ILLNESS: Mrs. Guajardo presents with abdominal pain, found to have gallstone pancreatitis, also found to have atrial fibrillation with heart rate in 150-160 range. She is transferred to the ICU. She is now with sinus, with peak frequent PACs, heart rates in the 90s. She has a history of a valve replacement. The is not sure what valve, has a history of hypertension for which she is on multiple agents; hyperlipidemia for which she is on Lipitor. She is n.p.o. now due to the pancreatitis. PHYSICAL EXAMINATION: CONSTITUTIONAL/GENERAL APPEARANCE: Well nourished, well developed, appears stated age. EYES: Lids and conjunctivae noninjected. No discharge. No pallor. ENT: Lips within normal limit. No cyanosis. No pallor. NECK: Carotid arteries, bilateral normal upstroke. No bruits. No thrills. No jugular venous pressure or distention. CERVICAL LYMPH NODES: Nontender. Nonenlarged. THYROID: Not enlarged. No nodules. CARDIOVASCULAR: Precordial exam, nondisplaced. No heaves or pericardial thrills. Rate and rhythm, regular. Heart sounds, normal S1, normal S2. No S3, no gallop, no rub. Systolic murmur, not heard. Diastolic murmur, not heard. RESPIRATORY: Respiratory effort, unlabored. Normal curvature. No thoracic deformity. No chest wall tenderness. Percussion, resonant. Auscultation, clear. No wheezes, no rales, no rhonchi. ABDOMEN: Soft, nondistended, nontender. No abdominal pain, no vomiting and normal appetite. MUSCULOSKELETAL: No joint tenderness, normal gait, normal tone. SKIN: Warm and dry. OVERALL IMPRESSION: Paroxysmal atrial fibrillation. At this time, her heart rate is stabilized; however, it appears that she is going to need further intervention, whether it be ERCP or operative intervention. We will put her on IV amiodarone, continuing the drip until she is able to take p.o. We will get an echocardiogram, otherwise no other cardiac workup or testing is necessary. TRANSINT:[id number] Voice Confirmation ID: [id number] DOCUMENT ID: [id number] CONSULT REPORT [id number] CADE GUAJARDO JEFFREY MD at 1112 CC: [id number] DICTATION DATE: 11/25/19 1035 SERVICE ADMINISTRATOR: 11/25/19 1101 DIS IN 11/29/19 [place] [id number] [place] [address]
--- NOTE | 2019-12-04 11:13 | EC ---
PATIENT:CADE JAIME DATE OF SERVICE: 11/23/19 SEX: F MEDICAL RECORD: [id number] DATE OF : [birth year] LOCATION:[place] [address] AGE OF PATIENT: 89 ADMISSION DATE: 11/23/19 REFERRING PHYSICIAN: INTERPRETING PHYSICIAN: GARLAND AGUDELO MD ECHOCARDIOGRAM REPORT ECHO CHARGES 5 ECHO LIMITED Date: 11/25/19 CLINICAL DIAGNOSIS: PVC'S HX OF VALVE REPLACEMENT ECHOCARDIOGRAPHIC MEASUREMENTS (adult normal given) AC root (d.<3.7cm) cm LV Septum d (<1.2 cm> cm Valve Excursion cm LV Septum (systole) cm Left Atria (s.<4.0cm> 4.2 cm LVPW d(<1.2cm) cm RV (d.<2.3cm) 3.5 cm LVPW (sytole) cm LV diastole(<5.6CM) 4.4 cm MV E-F(>70mm/sec) cm LV systole 3.3 cm LVOT Diameter 1.7 cm MV exc.(>10mm) cm Est.ejection fraction (50-75%) % DOPPLER: LVIT cm/sec A cm/sec E 105.0 cm/sec LA 131.0cm/sec RVSP 36 mmHg LVOT cm/sec AOP1/2T m/s Asc. Ao 137 cm/sec RVOT 161 cm/sec RA cm/sec PA cm/sec AV Gradient Peak 10.39mmHg AV Mean 6.50 mmHg AV Area 2.1 cm MV Gradient Peak 8.03 mmHg MV Mean 4.12 mmHg MV Area cm COMMENTS: Cigar Packer And Picker: Branden HAYWARD Impact Retail Service Merchandiser: 1 Dr. Agudelo TAPE# PACS Pericardial Effusion N DATE OF SERVICE: ECHOCARDIOGRAM FINDINGS: 1. Left ventricular chamber size is within normal limits. Left ventricular systolic function is normal. Overall ejection fraction estimated at 60% to 65%. 2. Left atrium, right atrium, and right ventricle chamber sizes are within normal limits. 3. 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 The remaining valvular structures have normal structure and motion. 4. Doppler interrogation reveals only mild mitral regurgitation, mild tricuspid regurgitation, no other valvular insufficiency or stenosis. 5. No evidence of pericardial effusion or left ventricular thrombus TRANSINT:[id number] Voice Confirmation ID: [id number] DOCUMENT ID: [id number] GARLAND AGUDELO MD at 1113 CC: [id number] DICTATION DATE: 11/26/19 1256 TOXICOLOGY TEACHER: 11/26/19 1348 DIS IN 11/29/19 [place] [id number] [place] [id number]
== END 2019-11-29 21:46 | disposition hospice, inpatient (51) | DRG 871 ==
LOC: D.ER 11:19 → D.MS 15:38 → D.CVICU 15:38 → D.MS 16:38 → D.CVICU 11-25 09:49
PROVIDERS: Family Medicine; Internal Medicine Pulmonary Disease; ADMIT Internal Medicine Nephrology; ATTEND Internal Medicine Nephrology
PROC: 5A1945Z Respiratory Ventilation, 24-96 Consecutive Hours (ICD-10-PCS; principal; 2019-11-26)
PROC: 0BH17EZ Insertion of Endotracheal Airway into Trachea, Via Natural or Artificial Opening (ICD-10-PCS; 2019-11-26)
PROC: 05HM33Z Insertion of Infusion Device into Right Internal Jugular Vein, Percutaneous Approach (ICD-10-PCS; 2019-11-26)
DX: A41.9 Sepsis, unspecified organism (principal); J69.0 Pneumonitis due to inhalation of food and vomit; K85.90 Acute pancreatitis without necrosis or infection, unspecified; J96.01 Acute respiratory failure with hypoxia; N17.9 Acute kidney failure, unspecified; E44.0 Moderate protein-calorie malnutrition; E87.6 Hypokalemia; I48.0 Paroxysmal atrial fibrillation; I25.10 Atherosclerotic heart disease of native coronary artery without angina pectoris; I10 Essential (primary) hypertension; E78.5 Hyperlipidemia, unspecified; R00.0 Tachycardia, unspecified; E83.51 Hypocalcemia; G30.9 Alzheimer's disease, unspecified; F02.80 Dementia in other diseases classified elsewhere, unspecified severity, without behavioral disturbance, psychotic disturbance, mood disturbance, and anxiety; I49.3 Ventricular premature depolarization

== ENCOUNTER 2019-11-29 21:15 | Inpatient (IN) | payer OTHER ==
[~2019-11-29] VITALS: Ht 152.4 cm; Wt 59.0 kg
[2019-11-29 19:00] VITALS: BP 107/52
[2019-11-29 20:00] VITALS: BP 109/47
[2019-11-29 21:00] VITALS: BP 113/44
[2019-11-29 22:00] VITALS: BP 105/45
[2019-11-29 22:08] VITALS: BP 107/68; BMI 25.6
--- NOTE | 2019-11-29 22:10 | NUR ---
Patient accepted to Hospice, assessment completed per flowsheet. See flowsheet for details, will continue to monitor.
[2019-11-29 23:00] VITALS: BP 109/43
--- NOTE | 2019-11-29 23:00 | NUR ---
Reassessment completed per flowshet, no changes noted from previous assessment. Patient sedated, withdraws weakly from noxious stimuli. S1/S2 noted Sinus Tach on telemetry, slight irregular. Breathing is shallow/unlabored on 3L via NC with O2 sat 74%, crackles noted bilateral upper and mid with diminished lower. All pulses weak palpable with generalized edema, weakness noted all extremities. Repositioned for comfort, no further needs and will continue to monitor.
[2019-11-30] VITALS (12 sets, daily range): BP systolic 97–141; BP diastolic 45–54; Ht 152.4 cm; Wt 59.0 kg
--- NOTE | 2019-11-30 01:00 | NUR ---
Patient laying in bed with eyes closed, no changes noted. Patient does not follow commands/weak withdrawl to noxious stimuli. NSR on telemetry, slightly irregular. Breathing is shallow/unlabored on 3L via NC with O2 sat 80%, coarse crackles bilateral upper and mid with diminished lower. Repositioned for comfort, no further needs and will continue to monitor.
--- NOTE | 2019-11-30 02:55 | NUR ---
Reassessment completed per flowsheet, no changes noted from previous assessment. Patient does not respond to commands/weak withdrawl from noxious stimuli. Eyes 3mm sluggish, sclera is slight reddened. S1/S2 noted Sinus Tach on telemetry, slight irregular. Breathing is shallow/unlabored on 3L via NC with O2 sat 83%, coarse crackles noted bilateral upper and mid with diminished lower. All pulses weak palpable with cap refill < 3 sec, no movement noted all extremities. Repositioned for comfort, unable to assess pain. See flowsheet for details, will continue to monitor.
--- NOTE | 2019-11-30 03:50 | NUR ---
Full bed bath/linen change performed, patient tolerated well.
--- NOTE | 2019-11-30 05:00 | NUR ---
Patient laying in bed with eyes closed. Patient opened eyes to stimuli, does not track/respond to questions, no movement noted BUE with slight movement noted BLE. Coarse crackles noted bilateral upper and mid with diminished lower, no secretions removed via oral suctioning. Repositioned for comfort, will continue to monitor.
--- NOTE | 2019-11-30 07:15 | NUR ---
REPORT RECEIVED. PT ON HOSPICE. VS: 98.8 AXILLARY, 111/50, RR 17, O2 SAT 83% ON O2 AT 2L, HR 93. PT SEDATED AND RESTING QUIETLY. RESP UNLABORED. PT HAS RIGHT IJ THAT IS SALINE LOCKED. PT HAS A PALACIOS. SIDE RAILS UP X3. BED ALARM ON. WILL CONTINUE TO MONITOR.
--- NOTE | 2019-11-30 09:30 | NUR ---
PT RESTING QUIETLY AND APPEARS COMFORTABLE. WILL CONTINUE TO MONITOR.
--- NOTE | 2019-11-30 10:38 | NUR ---
CALLED [facility] TO GIVEN REPORT. RUSTIC TERRAZZO SETTER STATED NURSE JUST STEPPED OFF THE UNIT AND WOULD CALL ME BACK FOR REPORT.
--- NOTE | 2019-11-30 11:05 | NUR ---
REPORT GIVEN TO FELIZ SWANN. PT MOVING TO ROOM 2113. NOTIFIED.
--- NOTE | 2019-11-30 19:10 | NUR ---
BEDSIDE REPORT RECEIVED FROM DAY SHIFT, PT CARE ASSUMED. INTRODUCED SELF AND WROTE NAME ON BOARD. PT LYING IN BED, EYES CLOSED, RR EVEN AND NONLABORED, NO S/S OF DISTRESS, DOES NOT AROUSE OR RESPOND TO VERBAL STIMULI, STERNAL RUB, OR NOXIOUS STIMULANT. DARK YELLOW CONCENTRATED URINE NOTED IN PALACIOS BAG. VS 100.4 AXILLARY, 117/51, 104 BPM, 24 RR, 75% ON 3L NC. BED IN LOWEST POSITION, SR X2, CALL LIGHT WITHIN REACH. WILL CONTINUE TO MONITOR.
--- NOTE | 2019-11-30 19:20 | NUR ---
SPOKE WITH , REPORTS CHANGING HOME TO [facility] IN [place], . HE NO LONGER WANTS TO USE [facility].
--- NOTE | 2019-12-01 04:45 | NUR ---
FOUND PT WITH NO RR, NO PULSE, CONFIRMED WITH CHARGE NURSE PT HAS . INFORMED AND [facility]. AWAITING ARRIVAL OF [facility].
--- NOTE | 2019-12-01 05:56 | NUR ---
FELIZ RAMIREZ, WITH [facility] TO ROOM.
--- NOTE | 2019-12-01 07:42 | NUR ---
[facility] HERE RELEASE OF BODY DONE
--- NOTE | 2019-12-01 08:59 | MORECARE ---
CASE MANAGEMENT DISCHARGE SUMMARY PATIENT: CADE JAIME UNIT: [id number] ADM DATE: 11/29/19 AGE: 89 : 31 SEX: F ROOM/BED: D.2113 AUTHOR: RAFFAELE CORLEY PHYSICIAN: REFERRING PHYSICIAN: LESLI WILKS MD DATE OF SERVICE: 12/01/19 Discharge Plan Patient Name: CADE JAIME [facility] : 1930 Planned Disposition: Anticipated Discharge Date: 12/01/19 Discharge Date: 12/01/2019 Expected LOS: 2 Initial Reviewer: [email or web address] Initial Review Date: 12/01/2019 Generated: 12/01/19 9:59 am Patient Name: CADE JAIME Page [id number] at 0859 All edits/amendments must be made on the electronic document DICTATION DATE: 12/01/1959 HEADING AND PRIMING TOOL SETTER: DM 12/01/19 0859 RPT#: [id number] DC DATE:12/01/19 STATUS: DIS IN [facility] [address] [place] [address] END OF REPORT
== END 2019-12-01 07:44 | DRG 951 ==
LOC: D.CVICU 21:15 → D.M2 11-30 11:20
PROVIDERS: ADMIT Legal Medicine; ATTEND Legal Medicine
DX: Z51.5 Encounter for palliative care (principal)